=== PATIENT | male | born 1970 | race Caucasian/White ===

== ENCOUNTER 2017-08-01 09:57 | Emergency (ER) | payer MEDICAID ==
[~2017-08-01] VITALS: Ht 175.3 cm; Wt 103.5 kg
[~2017-08-01 09:57] MED LIST: ATIVAN1 MG PO; COLACE100 MG PO; LAC15L PO; LISINOPRIL10 MG PO; METOPROLOL TART25 M1 PO; PRILOSEC20 MG PO; ZES20 PO
[2017-08-01 10:22] VITALS: Ht 175.3 cm; Wt 103.5 kg
[2017-08-01 12:54] VITALS: BP 148/83
== END 2017-08-01 12:54 | disposition home or self-care (01) ==
LOC: ED 09:57
DX: J02.9 Acute pharyngitis, unspecified (principal); I10 Essential (primary) hypertension; M79.1 Myalgia
CPT/HCPCS: 87804; J1100; J1885

== ENCOUNTER 2017-08-06 09:37 | Inpatient (IN) | payer MEDICAID ==
[~2017-08-06] VITALS: Ht 170.2 cm; Wt 93.5 kg
[2017-08-06 09:51] VITALS: Ht 170.2 cm; Wt 93.5 kg
[2017-08-06 12:06] LABS: CARBON DIOXIDE 24.9 mmol/L (21-32); CHLORIDE SERUM 101 mmol/L (98-107); GFR1 > 60 mL/min; GLUCOSE SERUM 117 mg/dL (74-106); POTASSIUM SERUM 3.7 mmol/L (3.5-5.1); SODIUM SERUM 133 mmol/L (136-145)
[2017-08-06 12:10] LABS: ALKALINE PHOSPHATASE 167 U/L (46-116); ALT/SGPT 69 U/L (16-63); AST/SGOT 143 U/L (15-37); BILIRUBIN TOTAL 3.13 mg/dL (0.20-1.00); TOTAL PROTEIN, SERUM 7.9 g/dL (6.4-8.2)
[2017-08-06 12:11] LABS: BASOPHIL % 0.4 % (0-2); PLATELET COUNT 47 x10^3mcL (130-400); RED CELL DISTRIBUTION WIDTH 15.3 % (11.5-14.5)
[2017-08-06 12:20] LABS: ALBUMIN 2.7 g/dL (3.4-5.0)
[2017-08-06 17:08] VITALS: BP 139/86
[2017-08-06 18:17] LABS: IRON 49 ug/dL (65-170); MAGNESIUM 1.7 mg/dL (1.8-2.4); PHOSPHOROUS 2.9 mg/dL (2.5-4.9)
[2017-08-06 18:18] LABS: TOTAL IRON BINDING CAPACITY 227 ug/dL (250-450)
[2017-08-06 18:21] LABS: FREE T4 1.04 ng/dL (0.76-1.46)
[2017-08-06 18:25] LABS: FREE THYROXINE INDEX 1.4 ug/dL (1.4-4.5); T4(THYROXINE) 4.2 ug/dL (4.7-13.3)
[2017-08-06 18:37] LABS: RED BLOOD CELLS 3.62 M/mm3 (4.52-5.90)
[2017-08-06 21:53] VITALS: BP 128/68
[2017-08-07] VITALS (7 sets, daily range): BP systolic 97–159; BP diastolic 65–99
[2017-08-07 07:13] LABS: RED CELL DISTRIBUTION WIDTH 13.8 % (11.5-14.5)
[2017-08-07 07:16] LABS: CALCIUM 7.7 mg/dL (8.5-10.1); CARBON DIOXIDE 25.5 mmol/L (21-32); CHLORIDE SERUM 103 mmol/L (98-107); CREATININE SERUM 0.8 mg/dL (0.7-1.3); GFR1 > 60 mL/min; GLUCOSE SERUM 110 mg/dL (74-106); POTASSIUM SERUM 3.5 mmol/L (3.5-5.1); SODIUM SERUM 137 mmol/L (136-145); TRIGLYCERIDES 76 mg/dL (<150)
[2017-08-07 07:20] LABS: CHOLESTEROL 105 mg/dL (<200); CHOLESTEROL/HDL RATIO 3.3; HDL CHOLESTEROL 32 mg/dL (40-60)
[2017-08-07 07:21] LABS: BASOPHIL % 2.2 % (0-2)
[2017-08-07 08:04] LABS: PLATELET COUNT 46 x10^3mcL (130-400)
[2017-08-07 09:07] LABS: AMPHETAMINE QUAL UR NONE DETECTED (NEG <=1000)
[2017-08-07 09:21] LABS: microscopic required? YES; urine erythrocyte 1+ (NEGATIVE)
[2017-08-07 13:46] LABS: T3 TOTAL 0.85 ng/mL
[2017-08-08 06:00] VITALS: BP 169/90
[2017-08-08 06:11] LABS: BASOPHIL % 0.5 % (0-2)
[2017-08-08 06:16] LABS: RED CELL DISTRIBUTION WIDTH 15.3 % (11.5-14.5)
[2017-08-08 06:25] LABS: CALCIUM 8.1 mg/dL (8.5-10.1); CARBON DIOXIDE 23.8 mmol/L (21-32); CHLORIDE SERUM 106 mmol/L (98-107); CREATININE SERUM 0.8 mg/dL (0.7-1.3); GFR1 > 60 mL/min; GLUCOSE SERUM 91 mg/dL (74-106); MAGNESIUM 1.8 mg/dL (1.8-2.4); PHOSPHOROUS 3.5 mg/dL (2.5-4.9); POTASSIUM SERUM 3.8 mmol/L (3.5-5.1); SODIUM SERUM 139 mmol/L (136-145)
[2017-08-08 08:11] LABS: PLATELET COUNT 43 x10^3mcL (130-400)
[2017-08-08 08:18] VITALS: BP 142/74
[2017-08-08 08:45] VITALS: BP 142/74
[2017-08-08 12:14] VITALS: BP 144/84
[2017-08-08] MEDS ORDERED: AMO500 PO ×2 (16:30→17:15)
[2017-08-08] MEDS ORDERED: BIA500 PO ×2 (16:30→17:15)
[2017-08-08] MEDS ORDERED: IND10 PO (16:31)
[2017-08-08] MEDS ORDERED: THI100 PO (16:32)
[2017-08-08] MEDS ORDERED: LAC PO ×2 (16:32→17:15)
[2017-08-08] MEDS ORDERED: PRI20 PO (16:33)
[2017-08-08 17:22] VITALS: BP 144/84
== END 2017-08-08 18:27 | disposition home or self-care (01) | DRG 280 ==
LOC: ED 09:37 → DU 15:38 → MU 15:38 → DU 16:57 → MU 08-07 12:25
PROVIDERS: Emergency Medicine; Family Medicine; Internal Medicine Gastroenterology
PROC: 30233R1 Transfusion of Nonautologous Platelets into Peripheral Vein, Percutaneous Approach (ICD-10-PCS; 2017-08-07)
PROC: 0DB68ZX Excision of Stomach, Via Natural or Artificial Opening Endoscopic, Diagnostic (ICD-10-PCS; principal; 2017-08-08 13:00)
DX: K70.30 Alcoholic cirrhosis of liver without ascites (principal); E43 Unspecified severe protein-calorie malnutrition; F10.231 Alcohol dependence with withdrawal delirium; D69.59 Other secondary thrombocytopenia; E87.1 Hypo-osmolality and hyponatremia; I85.10 Secondary esophageal varices without bleeding; K21.9 Gastro-esophageal reflux disease without esophagitis; I10 Essential (primary) hypertension; R74.0 Nonspecific elevation of levels of transaminase and lactic acid dehydrogenase [LDH]; D53.9 Nutritional anemia, unspecified; Z72.0 Tobacco use; Z68.36 Body mass index [BMI] 36.0-36.9, adult
CPT/HCPCS: 43235; 83880; 84439; J0696; J1200; J1610; J1885; J2250; J2310; J3010; J3430; J3475; J3490; J7030; J7613; J7644; P9035; Q0092; Q0162; Q0163; Q9967

== ENCOUNTER 2018-10-01 14:59 | Inpatient (IN) | payer MEDICAID ==
[~2018-10-01] VITALS: Ht 170.2 cm; Wt 114.8 kg
[~2018-10-01 14:59] MED LIST changes: +ALD25 PO; +AMO500 PO; +BIA500 PO; +FLO4 PO; +IND10 PO; +L20 PO; +LAC PO; +LAC30L PO; +LEXAPRO10 MG PO; +LIB25 PO; +PRI20 PO; +THI100 PO
[2018-10-01 15:08] VITALS: Ht 170.2 cm; Wt 114.8 kg
[2018-10-01 16:32] LABS: BASOPHIL % 0.3 % (0-2)
[2018-10-01 16:39] LABS: PLATELET COUNT 24 x10^3mcL (130-400)
[2018-10-01 16:44] LABS: UA SPECIFIC GRAVITY 1.015 (1.005-1.035); microscopic required? YES; urine erythrocyte 3+ (NEGATIVE)
[2018-10-01 16:48] LABS: CALCIUM 7.3 mg/dL (8.5-10.1); CARBON DIOXIDE 24.5 mmol/L (21-32); CREATININE SERUM 1.6 mg/dL (0.7-1.3); POTASSIUM SERUM 3.6 mmol/L (3.5-5.1)
[2018-10-01 17:01] LABS: BILIRUBIN TOTAL 2.89 mg/dL (0.20-1.00); TOTAL PROTEIN, SERUM 6.6 g/dL (6.4-8.2)
[2018-10-01 17:05] LABS: ALBUMIN 1.7 g/dL (3.4-5.0)
[2018-10-01 17:17] LABS: ovalocyte/elliptocyte 1+; rbc morphology (normal/abnorm) ABNORMAL (NORMAL)
[2018-10-01 19:44] LABS: MAGNESIUM 1.3 mg/dL (1.8-2.4); PHOSPHOROUS 2.4 mg/dL (2.5-4.9)
[2018-10-01 19:53] VITALS: BP 132/71
[2018-10-01 19:56] LABS: AMPHETAMINE QUAL UR NONE DETECTED (See below)
[2018-10-02 05:24] VITALS: BP 131/70
[2018-10-02 06:22] LABS: CALCIUM 7.3 mg/dL (8.5-10.1); CARBON DIOXIDE 23.2 mmol/L (21-32); CREATININE SERUM 1.7 mg/dL (0.7-1.3); MAGNESIUM 1.9 mg/dL (1.8-2.4); PHOSPHOROUS 3.4 mg/dL (2.5-4.9); POTASSIUM SERUM 3.6 mmol/L (3.5-5.1)
[2018-10-02 08:06] LABS: BASOPHIL % 0.3 % (0-2)
[2018-10-02 08:09] LABS: PLATELET COUNT 25 x10^3mcL (130-400); RED CELL DISTRIBUTION WIDTH 15.3 % (11.5-14.5)
[2018-10-02 09:45] VITALS: BP 136/76
[2018-10-02 13:53] VITALS: BP 143/62
[2018-10-02 17:35] VITALS: BP 143/76
[2018-10-02 21:00] VITALS: BP 140/64
[2018-10-03 05:58] VITALS: BP 133/61
[2018-10-03 09:04] VITALS: BP 127/85
[2018-10-03 12:15] VITALS: BP 143/78
[2018-10-03 16:07] VITALS: BP 144/71
[2018-10-03 20:20] VITALS: BP 140/66
[2018-10-04 05:01] VITALS: BP 136/76
[2018-10-04 09:24] VITALS: BP 120/77
[2018-10-04] MEDS ORDERED: SPIRONOLACTONE100 MG PO (10:59)
[2018-10-04] MEDS ORDERED: BACTRIM DS1 TAB PO (11:00)
[2018-10-04] MEDS ORDERED: EPZICOM1 TAB PO (11:00)
[2018-10-04 13:05] VITALS: BP 120/77
[2018-10-04 14:01] VITALS: BP 138/87
[2018-10-04 16:55] VITALS: BP 137/77
[2018-10-04 20:32] VITALS: BP 158/88
[2018-10-05 05:23] VITALS: BP 134/77
[2018-10-05 06:39] LABS: BASOPHIL % 0.6 % (0-2)
[2018-10-05 06:44] LABS: CALCIUM 7.5 mg/dL (8.5-10.1); CARBON DIOXIDE 22.1 mmol/L (21-32); CREATININE SERUM 1.4 mg/dL (0.7-1.3); MAGNESIUM 1.3 mg/dL (1.8-2.4); PHOSPHOROUS 4.1 mg/dL (2.5-4.9); POTASSIUM SERUM 3.8 mmol/L (3.5-5.1)
[2018-10-05 06:46] LABS: RED CELL DISTRIBUTION WIDTH 15.8 % (11.5-14.5)
[2018-10-05 08:45] LABS: PLATELET COUNT 36 x10^3mcL (130-400)
[2018-10-05 10:20] VITALS: BP 142/87
== END 2018-10-05 12:10 | disposition home or self-care (01) | DRG 720 ==
LOC: ED 14:59 → MU 18:22 → DU 18:22 → MU 19:33 → DU 23:49
PROVIDERS: Emergency Medicine; ADMIT Internal Medicine
PROC: 0W9G3ZZ Drainage of Peritoneal Cavity, Percutaneous Approach (ICD-10-PCS; principal; 2018-10-02)
DX: A41.9 Sepsis, unspecified organism (principal); N17.0 Acute kidney failure with tubular necrosis; E43 Unspecified severe protein-calorie malnutrition; D61.818 Other pancytopenia; D68.59 Other primary thrombophilia; E83.39 Other disorders of phosphorus metabolism; E66.01 Morbid (severe) obesity due to excess calories; K70.11 Alcoholic hepatitis with ascites; K70.31 Alcoholic cirrhosis of liver with ascites; E87.1 Hypo-osmolality and hyponatremia; E83.42 Hypomagnesemia; Z68.41 Body mass index [BMI] 40.0-44.9, adult; N39.0 Urinary tract infection, site not specified; N20.0 Calculus of kidney; R31.9 Hematuria, unspecified; N50.89 Other specified disorders of the male genital organs; E03.9 Hypothyroidism, unspecified; D53.9 Nutritional anemia, unspecified; F10.20 Alcohol dependence, uncomplicated; Z91.14 Patient's other noncompliance with medication regimen; Z91.19 Patient's noncompliance with other medical treatment and regimen
CPT/HCPCS: 49083; 87804; 90658; C1729; C9113; G0480; J0696; J1885; J1940; J1956; J2060; J3475; J7030; Q0092

== ENCOUNTER 2018-10-14 15:54 | Emergency (ER) | payer MEDICAID ==
[~2018-10-14] VITALS: Ht 170.2 cm; Wt 103.9 kg
[~2018-10-14 15:54] MED LIST changes: +BACTRIM DS1 TAB PO; +EPZICOM1 TAB PO; +SPIRONOLACTONE100 MG PO
[2018-10-14 16:08] VITALS: Ht 170.2 cm; Wt 103.9 kg
[2018-10-14 16:49] LABS: BASOPHIL % 0.7 % (0-2)
[2018-10-14 16:53] LABS: PLATELET COUNT 47 x10^3mcL (130-400); RED CELL DISTRIBUTION WIDTH 15.9 % (11.5-14.5)
[2018-10-14 16:59] LABS: CALCIUM 8.4 mg/dL (8.5-10.1); CARBON DIOXIDE 23.1 mmol/L (21-32); POTASSIUM SERUM 4.8 mmol/L (3.5-5.1)
[2018-10-14 17:04] LABS: ALBUMIN 2.4 g/dL (3.4-5.0); BILIRUBIN TOTAL 1.5 mg/dL (0.20-1.00); TOTAL PROTEIN, SERUM 8.1 g/dL (6.4-8.2)
[2018-10-14 19:45] VITALS: BP 132/72
== END 2018-10-14 19:45 | disposition home or self-care (01) ==
LOC: ED 15:54
PROVIDERS: Emergency Medicine
DX: K42.9 Umbilical hernia without obstruction or gangrene (principal); N20.0 Calculus of kidney; R18.8 Other ascites; I10 Essential (primary) hypertension; Z98.890 Other specified postprocedural states
CPT/HCPCS: J1885; J2405; J7030

== ENCOUNTER 2018-10-31 22:57 | Emergency (ER) | payer MEDICAID ==
[~2018-10-31] VITALS: Ht 167.6 cm; Wt 107.0 kg
[2018-10-31 23:08] VITALS: Ht 167.6 cm; Wt 107.0 kg
[2018-11-01 00:37] LABS: BASOPHIL % 0.4 % (0-2)
[2018-11-01 00:38] LABS: RED CELL DISTRIBUTION WIDTH 15.9 % (11.5-14.5)
[2018-11-01 00:39] LABS: PLATELET COUNT 42 x10^3mcL (130-400)
[2018-11-01 00:42] LABS: CALCIUM 8.3 mg/dL (8.5-10.1); CARBON DIOXIDE 21.5 mmol/L (21-32); CHLORIDE SERUM 107 mmol/L (98-107); CREATININE SERUM 1.3 mg/dL (0.7-1.3); GFR1 > 60 mL/min; GLUCOSE SERUM 117 mg/dL (74-106); POTASSIUM SERUM 3.5 mmol/L (3.5-5.1); SODIUM SERUM 139 mmol/L (136-145)
[2018-11-01 00:48] LABS: ALBUMIN 2.3 g/dL (3.4-5.0); ALKALINE PHOSPHATASE 197 U/L (46-116); ALT/SGPT 38 U/L (16-63); AST/SGOT 58 U/L (15-37); BILIRUBIN TOTAL 1.7 mg/dL (0.20-1.00); LIPASE 264 IU/L (73-393); TOTAL PROTEIN, SERUM 7.2 g/dL (6.4-8.2)
[2018-11-01 03:08] VITALS: BP 120/67
== END 2018-11-01 03:08 | disposition home or self-care (01) ==
LOC: ED 22:57
PROVIDERS: Emergency Medicine
DX: K42.0 Umbilical hernia with obstruction, without gangrene (principal); D61.818 Other pancytopenia; F10.10 Alcohol abuse, uncomplicated; I10 Essential (primary) hypertension; Z98.890 Other specified postprocedural states
CPT/HCPCS: 36415; J2270; J2405

== ENCOUNTER 2018-11-07 15:20 | Emergency (ER) | payer MEDICAID ==
[~2018-11-07] VITALS: Ht 167.6 cm; Wt 104.0 kg
[2018-11-07 15:27] VITALS: Ht 167.6 cm; Wt 104.0 kg
[2018-11-07 18:28] VITALS: BP 148/83
== END 2018-11-07 18:30 | disposition home or self-care (01) ==
LOC: ED 15:20
DX: R10.33 Periumbilical pain (principal); R11.10 Vomiting, unspecified; I10 Essential (primary) hypertension; Z98.890 Other specified postprocedural states
CPT/HCPCS: G0500; J2270; J2405; J3490; J7030

== ENCOUNTER 2018-11-18 18:02 | Emergency (ER) | payer MEDICAID ==
[~2018-11-18] VITALS: Ht 170.2 cm; Wt 114.8 kg
[2018-11-18 18:16] VITALS: Ht 170.2 cm; Wt 114.8 kg
[2018-11-18 21:10] LABS: microscopic required? YES; urine erythrocyte 3+ (NEGATIVE)
[2018-11-18 22:11] VITALS: BP 150/94
== END 2018-11-18 22:11 | disposition home or self-care (01) ==
LOC: ED 18:02
PROVIDERS: Emergency Medicine
DX: N50.812 Left testicular pain (principal); N39.0 Urinary tract infection, site not specified; K40.90 Unilateral inguinal hernia, without obstruction or gangrene, not specified as recurrent; I10 Essential (primary) hypertension; Z98.890 Other specified postprocedural states
CPT/HCPCS: Q0092

== ENCOUNTER 2018-12-05 20:00 | Emergency (ER) | payer MEDICAID ==
[~2018-12-05] VITALS: Ht 170.2 cm; Wt 123.8 kg
[2018-12-05 20:04] VITALS: Ht 170.2 cm; Wt 123.8 kg
[2018-12-05 21:36] LABS: BASOPHIL % 0.9 % (0-2)
[2018-12-05 21:38] LABS: PLATELET COUNT 47 x10^3mcL (130-400); RED CELL DISTRIBUTION WIDTH 15.7 % (11.5-14.5)
[2018-12-05 21:45] LABS: CALCIUM 8.6 mg/dL (8.5-10.1); CARBON DIOXIDE 24.8 mmol/L (21-32); CHLORIDE SERUM 105 mmol/L (98-107); CREATININE SERUM 1.3 mg/dL (0.7-1.3); GFR1 > 60 mL/min; GLUCOSE SERUM 131 mg/dL (74-106); POTASSIUM SERUM 3.3 mmol/L (3.5-5.1); SODIUM SERUM 139 mmol/L (136-145)
[2018-12-05 21:49] LABS: ALBUMIN 2.2 g/dL (3.4-5.0); ALKALINE PHOSPHATASE 169 U/L (46-116); ALT/SGPT 36 U/L (16-63); AST/SGOT 58 U/L (15-37); BILIRUBIN TOTAL 2.19 mg/dL (0.20-1.00); TOTAL PROTEIN, SERUM 6.3 g/dL (6.4-8.2)
[2018-12-05 22:11] LABS: UA SPECIFIC GRAVITY 1.015 (1.005-1.035); microscopic required? YES; urine erythrocyte 3+ (NEGATIVE)
[2018-12-05 23:44] VITALS: BP 140/79
== END 2018-12-05 23:44 | disposition home or self-care (01) ==
LOC: ED 20:00
PROVIDERS: Emergency Medicine
DX: K74.60 Unspecified cirrhosis of liver (principal); N50.89 Other specified disorders of the male genital organs; D61.818 Other pancytopenia; D51.9 Vitamin B12 deficiency anemia, unspecified; I12.9 Hypertensive chronic kidney disease with stage 1 through stage 4 chronic kidney disease, or unspecified chronic kidney disease; N18.9 Chronic kidney disease, unspecified
CPT/HCPCS: 36415; J1885; Q0092

== ENCOUNTER 2019-04-16 08:05 | Emergency (ER) | payer MEDICAID ==
[~2019-04-16] VITALS: Ht 167.6 cm; Wt 93.4 kg
[2019-04-16 08:12] VITALS: Ht 167.6 cm; Wt 93.4 kg
[2019-04-16 08:55] LABS: BASOPHIL % 0.3 % (0-2)
[2019-04-16 09:07] LABS: PLATELET COUNT 44 x10^3mcL (130-400); RED CELL DISTRIBUTION WIDTH 15.9 % (11.5-14.5)
[2019-04-16 09:12] LABS: CALCIUM 8.2 mg/dL (8.5-10.1); CARBON DIOXIDE 22.3 mmol/L (21-32); CHLORIDE SERUM 106 mmol/L (98-107); CREATININE SERUM 1.3 mg/dL (0.7-1.3); GFR1 > 60 mL/min; GLUCOSE SERUM 124 mg/dL (74-106); POTASSIUM SERUM 4.4 mmol/L (3.5-5.1); SODIUM SERUM 137 mmol/L (136-145)
[2019-04-16 09:16] LABS: ALKALINE PHOSPHATASE 163 U/L (46-116); ALT/SGPT 31 U/L (16-63); AST/SGOT 33 U/L (15-37); BILIRUBIN TOTAL 1.5 mg/dL (0.20-1.00); LIPASE 227 IU/L (73-393); TOTAL PROTEIN, SERUM 6.4 g/dL (6.4-8.2)
[2019-04-16 09:22] LABS: ALBUMIN 2.8 g/dL (3.4-5.0)
[2019-04-16 10:33] VITALS: BP 115/75
== END 2019-04-16 10:33 | disposition home or self-care (01) ==
LOC: ED 08:05
PROVIDERS: Emergency Medicine
DX: K42.9 Umbilical hernia without obstruction or gangrene (principal); I10 Essential (primary) hypertension; Z98.890 Other specified postprocedural states; K74.60 Unspecified cirrhosis of liver
CPT/HCPCS: J2270; J2405; J7030

== ENCOUNTER 2019-04-17 16:50 | Emergency (ER) | payer MEDICAID ==
[~2019-04-17] VITALS: Ht 170.2 cm; Wt 90.0 kg
[2019-04-17 16:59] VITALS: Ht 170.2 cm; Wt 90.0 kg
[2019-04-17 20:20] LABS: CALCIUM 8.1 mg/dL (8.5-10.1); CARBON DIOXIDE 26.3 mmol/L (21-32); CHLORIDE SERUM 105 mmol/L (98-107); CREATININE SERUM 1.1 mg/dL (0.7-1.3); GFR1 > 60 mL/min; GLUCOSE SERUM 105 mg/dL (74-106); POTASSIUM SERUM 4.8 mmol/L (3.5-5.1); SODIUM SERUM 136 mmol/L (136-145)
[2019-04-17 20:24] LABS: ALKALINE PHOSPHATASE 148 U/L (46-116); ALT/SGPT 31 U/L (16-63); AMYLASE 111 U/L (25-115); AST/SGOT 36 U/L (15-37); BILIRUBIN TOTAL 1.47 mg/dL (0.20-1.00); LIPASE 166 IU/L (73-393); TOTAL PROTEIN, SERUM 6.6 g/dL (6.4-8.2)
[2019-04-17 20:26] LABS: ALBUMIN 2.9 g/dL (3.4-5.0)
[2019-04-17 20:27] LABS: BASOPHIL % 0.7 % (0-2)
[2019-04-17 20:28] LABS: PLATELET COUNT 52 x10^3mcL (130-400); RED CELL DISTRIBUTION WIDTH 15.9 % (11.5-14.5)
[2019-04-17 22:03] LABS: microscopic required? YES; urine erythrocyte 3+ (NEGATIVE)
[2019-04-17 22:12] LABS: AMPHETAMINE QUAL UR NONE DETECTED (See below)
[2019-04-18 00:30] VITALS: BP 119/69
== END 2019-04-18 00:30 | disposition home or self-care (01) ==
LOC: ED 16:50
PROVIDERS: Emergency Medicine
DX: K42.9 Umbilical hernia without obstruction or gangrene (principal); I10 Essential (primary) hypertension; F10.10 Alcohol abuse, uncomplicated; Z87.19 Personal history of other diseases of the digestive system
CPT/HCPCS: J1885; J2270; J2405; Q9967

== ENCOUNTER 2019-04-18 22:35 | Emergency (ER) | payer MEDICAID ==
[~2019-04-18] VITALS: Ht 170.2 cm; Wt 91.6 kg
[2019-04-18 22:40] VITALS: Ht 170.2 cm; Wt 91.6 kg
[2019-04-18 23:02] VITALS: BP 115/65
[2019-04-18 23:21] LABS: BASOPHIL % 0.6 % (0-2)
[2019-04-18 23:22] LABS: PLATELET COUNT 46 x10^3mcL (130-400); RED CELL DISTRIBUTION WIDTH 15.9 % (11.5-14.5)
[2019-04-18 23:49] LABS: CALCIUM 7.6 mg/dL (8.5-10.1); CARBON DIOXIDE 23.9 mmol/L (21-32); CREATININE SERUM 1.6 mg/dL (0.7-1.3); POTASSIUM SERUM 4.2 mmol/L (3.5-5.1)
[2019-04-18 23:53] LABS: BILIRUBIN TOTAL 1.02 mg/dL (0.20-1.00)
[2019-04-18 23:54] LABS: ALBUMIN 2.5 g/dL (3.4-5.0); TOTAL PROTEIN, SERUM 5.8 g/dL (6.4-8.2)
== END 2019-04-19 00:46 | disposition home or self-care (01) ==
LOC: ED 22:35
PROVIDERS: Emergency Medicine
DX: M94.0 Chondrocostal junction syndrome [Tietze] (principal); R42 Dizziness and giddiness
CPT/HCPCS: 36415; 83880; J1885

== ENCOUNTER 2019-05-11 09:34 | Emergency (ER) | payer MEDICAID ==
[~2019-05-11] VITALS: Ht 170.2 cm; Wt 91.2 kg
[2019-05-11 09:50] VITALS: Ht 170.2 cm; Wt 91.2 kg
[2019-05-11 11:06] LABS: BASOPHIL % 0.4 % (0-2)
[2019-05-11 11:08] LABS: RED CELL DISTRIBUTION WIDTH 16.1 % (11.5-14.5)
[2019-05-11 11:32] LABS: CALCIUM 8.9 mg/dL (8.5-10.1); CARBON DIOXIDE 25.6 mmol/L (21-32); CHLORIDE SERUM 105 mmol/L (98-107); CREATININE SERUM 1.2 mg/dL (0.7-1.3); GFR1 > 60 mL/min; GLUCOSE SERUM 111 mg/dL (74-106); POTASSIUM SERUM 5.2 mmol/L (3.5-5.1); SODIUM SERUM 136 mmol/L (136-145)
[2019-05-11 11:36] LABS: ALKALINE PHOSPHATASE 158 U/L (46-116); ALT/SGPT 27 U/L (16-63); AST/SGOT 34 U/L (15-37); BILIRUBIN TOTAL 1.69 mg/dL (0.20-1.00); LIPASE 247 IU/L (73-393); TOTAL PROTEIN, SERUM 7.3 g/dL (6.4-8.2)
[2019-05-11 11:37] LABS: ALBUMIN 3.1 g/dL (3.4-5.0)
[2019-05-11 12:28] LABS: PLATELET COUNT 45 x10^3mcL (130-400)
[2019-05-11 14:07] VITALS: BP 112/66
== END 2019-05-11 14:07 | disposition home or self-care (01) ==
LOC: ED 09:34
PROVIDERS: Emergency Medicine
DX: K42.9 Umbilical hernia without obstruction or gangrene (principal)
CPT/HCPCS: J2270; J2405

== ENCOUNTER 2019-06-04 18:40 | Emergency (ER) | payer MEDICAID ==
[~2019-06-04] VITALS: Ht 170.2 cm; Wt 91.2 kg
[2019-06-04 19:29] VITALS: Ht 170.2 cm; Wt 91.2 kg
[2019-06-04 20:32] LABS: BASOPHIL % 0.4 % (0-2)
[2019-06-04 20:36] LABS: PLATELET COUNT 41 x10^3mcL (130-400); RED CELL DISTRIBUTION WIDTH 17.8 % (11.5-14.5)
[2019-06-04 20:49] LABS: CALCIUM 8.6 mg/dL (8.5-10.1); CARBON DIOXIDE 21.6 mmol/L (21-32); CREATININE SERUM 1.5 mg/dL (0.7-1.3); POTASSIUM SERUM 4.2 mmol/L (3.5-5.1)
[2019-06-04 20:53] LABS: ALBUMIN 3.2 g/dL (3.4-5.0); BILIRUBIN TOTAL 1.8 mg/dL (0.20-1.00); TOTAL PROTEIN, SERUM 7.2 g/dL (6.4-8.2)
[2019-06-04 23:10] LABS: UA SPECIFIC GRAVITY 1.015 (1.005-1.035); microscopic required? YES; urine erythrocyte 3+ (NEGATIVE)
[2019-06-05 00:47] VITALS: BP 107/63
== END 2019-06-05 01:00 | disposition home or self-care (01) ==
LOC: ED 18:40
PROVIDERS: Emergency Medicine
DX: N20.0 Calculus of kidney (principal); K74.60 Unspecified cirrhosis of liver; I12.9 Hypertensive chronic kidney disease with stage 1 through stage 4 chronic kidney disease, or unspecified chronic kidney disease; N18.9 Chronic kidney disease, unspecified
CPT/HCPCS: J1885; J2405

== ENCOUNTER 2019-09-25 11:23 | Emergency (ER) | payer MEDICAID ==
[~2019-09-25] VITALS: Ht 170.2 cm; Wt 94.3 kg
[2019-09-25 11:45] VITALS: Ht 170.2 cm; Wt 94.3 kg
[2019-09-25 13:18] LABS: BASOPHIL % 0.6 % (0-2)
[2019-09-25 13:19] LABS: CALCIUM 8.3 mg/dL (8.5-10.1); CARBON DIOXIDE 24.8 mmol/L (21-32); CREATININE SERUM 1.7 mg/dL (0.7-1.3); POTASSIUM SERUM 4.3 mmol/L (3.5-5.1)
[2019-09-25 13:23] LABS: PLATELET COUNT 50 x10^3mcL (130-400); RED CELL DISTRIBUTION WIDTH 18.7 % (11.5-14.5)
[2019-09-25 13:24] LABS: BILIRUBIN TOTAL 1.6 mg/dL (0.20-1.00)
[2019-09-25 16:02] VITALS: BP 110/75
== END 2019-09-25 15:58 | disposition home or self-care (01) ==
LOC: ED 11:23
PROVIDERS: Student in an Organized Health Care Education/Training Program
DX: K42.9 Umbilical hernia without obstruction or gangrene (principal); K52.9 Noninfective gastroenteritis and colitis, unspecified; F10.20 Alcohol dependence, uncomplicated; K70.30 Alcoholic cirrhosis of liver without ascites; I10 Essential (primary) hypertension; Z98.890 Other specified postprocedural states
CPT/HCPCS: J2270; J2405; J7030; Q9967

== ENCOUNTER 2019-10-03 18:29 | Emergency (ER) | payer MEDICAID ==
[~2019-10-03] VITALS: Ht 170.2 cm; Wt 98.4 kg
[2019-10-03 18:45] VITALS: Ht 170.2 cm; Wt 98.4 kg
[2019-10-03 19:52] LABS: PLATELET COUNT 44 x10^3mcL (130-400); RED CELL DISTRIBUTION WIDTH 19.1 % (11.5-14.5)
[2019-10-03 20:02] LABS: CALCIUM 8.3 mg/dL (8.5-10.1); CARBON DIOXIDE 21.9 mmol/L (21-32); CREATININE SERUM 1.7 mg/dL (0.7-1.3); POTASSIUM SERUM 4.1 mmol/L (3.5-5.1)
[2019-10-03 20:05] LABS: BAND NEUTROPHIL 0 % (0-10); BASOPHIL 0 % (0-2); MONOCYTE 9 % (0-7); SEGMENTED NEUTROPHILS 65 % (37-75)
[2019-10-03 20:07] LABS: ALBUMIN 2.8 g/dL (3.4-5.0); BILIRUBIN TOTAL 1.4 mg/dL (0.20-1.00); TOTAL PROTEIN, SERUM 6.3 g/dL (6.4-8.2); rbc morphology (normal/abnorm) NORMAL (NORMAL)
[2019-10-03 20:27] VITALS: BP 128/67
== END 2019-10-03 20:27 | disposition home or self-care (01) ==
LOC: ED 18:29
PROVIDERS: Emergency Medicine
DX: K74.60 Unspecified cirrhosis of liver (principal); I12.9 Hypertensive chronic kidney disease with stage 1 through stage 4 chronic kidney disease, or unspecified chronic kidney disease; N18.9 Chronic kidney disease, unspecified; Z98.890 Other specified postprocedural states
CPT/HCPCS: 36415

== ENCOUNTER 2019-10-04 15:47 | Emergency (ER) | payer MEDICAID ==
[~2019-10-04] VITALS: Ht 170.2 cm; Wt 98.9 kg
[2019-10-04 16:03] VITALS: BP 122/68; Ht 170.2 cm; Wt 98.9 kg
== END 2019-10-04 19:40 | disposition left against medical advice (07) ==
LOC: ED 15:47
DX: Z00.8 Encounter for other general examination (principal)